=== PATIENT | female | born 1955 | race Caucasian/White ===

== ENCOUNTER 2024-06-20 06:56 | Outpatient (OUT) | payer OTHER, SELFPAY ==
--- NOTE | 2024-06-20 | PCN_ITS ---
CARDIAC STRESS TEST Requesting Physician: Garret Nicholas M.D. Procedure Date: 06/20/2024 PERFORMING PROVIDER: Garret Nicholas M.D. REASON FOR TEST: Chest pain, shortness of breath, palpitations. STRESS TEST PROTOCOL: Lexiscan myocardial perfusion imaging. Resting heart rate: 62 Max hear rate: 88 Resting blood pressure: 118/74 Maximum blood pressure: 170/74 Resting EKG: Normal sinus rhythm. ST changes: No ST changes meeting the criteria of ischemia. Arrhythmias: PVCs. CONCLUSION: 1. Resting EKG demonstrates sinus rhythm. 2. There were no ST changes meeting the criteria of ischemia post Lexiscan infusion. 3. Myocardial perfusion imaging will be interpreted and reported in a separate report. Please refer to that report for additional information. [facility]
--- NOTE | 2024-06-20 07:10 | NM_ITS ---
Patient Name: MATHEW COATES MR#: [id number] : 1955 Exam Date: 06/20/2024 Ordering Doctor: ROSSY NICHOLAS M.D. RADIOLOGY REPORT PROCEDURE: NM GELACIO PERF SPECT REST STR COMPARISON: None. INDICATIONS: DYSPNEA TECHNIQUE: Exam Description: Stress/Rest one day protocol gated SPECT Rest Imagin.4 mCi Tc-99m Cardiolite IV on 06/20/2024 Stress Imaging 30.1 mCi Tc-99m Cardiolite IV on 06/20/2024 Exercise Protocol: 0.4 mg Lexiscan given IV Heart Rate (bpm): Rest: 62 Max: 88 PMHR: 57 Blood Pressure: Rest: 118/74 Max: 118/74 Symptoms: Rest and peak stress ECG findings were normal and the exercise portion of the study was normal per attending physician Dr. Nicholas . For more details please see separate cardiac stress test report. FINDINGS: QUALITY OF STUDY: Excellent. PERFUSION DEFECT: LOCATION: Basal inferior. Mid-inferior. Apical inferior. [place]. SIZE: Medium (3-4 segments). SEVERITY: Mild. TYPE: Persistent. WALL MOTION: Normal. LV SIZE: Normal. 84 mL. TID / TCD: None; 0.8 LVEF: Normal. Calculated EF 57%. SUMMARY: Myocardial perfusion imaging study has ABNORMAL findings. CONCLUSION: 1. No acute or reversible ischemia. 2. Mildly decreased radiotracer activity within inferior wall and apex; fixed ischemia versus diaphragm attenuation artifact. 3. Normal wall motion, left ventricle size, and ejection fraction. Dictated by: Carlos Gongora M.D. on 06/22/2024 at 10:30 Approved by: Carlos Gongora M.D. on 06/22/2024 at 10:37
--- NOTE | 2024-06-20 07:30 | CA_ITS ---
Patient Name: MATHEW COATES MR#: [id number] : 1955 Exam Date: 06/20/2024 Ordering Doctor: ROSSY GARCÍA M.D. ECHOCARDIOGRAM REPORT PROCEDURE: CA ECHO DOPPLER COMPLETE INDICATIONS: Diastolic heart failure, palpitations, diabetes, hypertension COMPARISON: None. DESCRIPTION: COMPLETE ECHOCARDIOGRAM Real-time transthoracic echocardiography with 2D, M-mode, spectral and color flow Doppler performed. QUALITY: Technical quality was adequate. LEFT VENTRICLE: Normal chamber size. Normal left ventricular wall thickness. Normal systolic function. LV EF: Normal left ventricular ejection fraction, (55%). DIASTOLIC: Diastolic function is indeterminate. ATRIAL SEPTUM: Visually appears intact. Lipomatous hypertrophy of the interatrial septum is seen. LEFT ATRIUM: Mild dilatation. RIGHT ATRIUM: Normal chamber size. RIGHT VENTRICLE: Normal chamber size. Normal right ventricular systolic function. TRICUSPID VALVE: Normal mobility and thickness. No stenosis with trivial regurgitation. Doppler studies reveal mildly (35-45) elevated right sided pressures. RVSP 36 mmHg MITRAL VALVE: Normal mobility and thickness. No evidence of mitral valve stenosis. There is no mitral annular calcification. No mitral regurgitation. AORTIC VALVE: Normal trileaflet appearance. No visible sclerosis. Normal leaflet mobility. No evidence of aortic valve stenosis. No aortic regurgitation. AORTIC ROOT: Normal diameter and appearance. PULMONIC VALVE: Not well visualized. No stenosis. No regurgitation. PERICARDIUM: No evidence of pericardial effusion. IVC: Collapses with inspirations. IVC is normal in size. PLEURA: CONCLUSION: 1. Normal left ventricular size and systolic function. Estimated LVEF is 55%. 2. Normal right ventricular size and systolic function. 3. Mild left atrial dilatation. Lipomatous hypertrophy of the interatrial septum. 4. No significant valvular dysfunction. 5. Mildly elevated right-sided pressures. Adult Echocardiography Procedure Report Left Ventricle LVEDD (3.7 - 5.6 cm): 4.85 cm LVESD (2.2 - 4.0 cm): 2.98 cm LVIVS thickness (0.6 - 1.2 cm): 1.03 cm LVPW thickness (0.5 - 1.0 cm): 0.82 cm e': 0.13 m/s E - e': 5.36 LVOT Max Gradient: 3.91 mm[Hg] LVOT Area (cm2): 0.99 m/s Peak Velocity (LVOT): 0.99 m/s Mean Velocity (LVOT): 0.63 m/s LVOT Diameter 2.02 cm Left Atrium LA Volume Index (2D A2C): 36.94 ml/m2 Left Atrium Systolic Dimension: 3.68 cm Mitral Valve MV E to A Ratio: 0.78 Mitral Valve A-Wave Peak Velocity: 0.88 m/s Mitral Valve E-Wave Peak Velocity: 0.69 m/s Right Ventricle Aorta AO Root Diam: 3.00 cm Aortic Valve AoV Area (Peak Baltazar): 2.17 cm2, 2.17 cm2 AoV Area (VTI): 2.33 cm2, 2.33 cm2 Peak Velocity(Antegrade Flow): 1.47 m/s Peak Gradient(Antegrade Flow): 8.61 mm[Hg] Mean Velocity(Antegrade Flow): 0.92 m/s Mean Gradient(Antegrade Flow): 4.04 mm[Hg] Velocity Time Integral: 29.79 cm Tricuspid Valve Peak Velocity (Regurgitant Flow): 2.85 m/s Pulmonic Valve Mean Gradient: 2.57 mm[Hg] Mean Velocity: 0.75 m/s Peak Velocity: 1.07 m/s, 1.01 m/s Peak Gradient: 4.07 mm[Hg], 4.55 mm[Hg] Right Atrium Dictated by: Isiah Aldana M.D. on 06/20/2024 at 20:10 Approved by: Isiah Aldana M.D. on 06/20/2024 at 20:13
[2024-06-20] MEDS: REGADENOSON 0.4 MG/5 ML SYRINGE IV (08:55)
--- NOTE | 2024-06-20 10:07 | PC.NURSE ---
Nursing Note Cardiac Stress Test Reviewed: Medication, allergies and patient history reviewed. Stress Test: [ x] Patient tolerated stress test well. [ ] Patient unable to tolerate walking on treadmill. Switched to Lexiscan stress test. [x ] No chest pain noted per patient [ ] Chest pain that resolved prior to leaving stress lab. [x ] No dyspnea noted. [ ] Dyspnea that resolved prior to leaving stress lab. [ x] Patient left stress lab asymptomatic and hemodynamically stable. [ ] Patient taken to the Emergency Room due to non-resolving symptoms following stress test. [ ] Patient achieved target heart rate. [ ] Patient unable to achieve target heart rate. [ ] Aminophylline administered as reversal agent to Lexiscan (Regadenoson). [ ] Nitro administered. Nursing Comments:Pt had lexiscan stress test done. TOlerated well. No issues noted. Pt ambulated to cafeteria for breakfast prior to second set of images.
== END 2024-06-20 06:57 | disposition home or self-care (01) ==
PROVIDERS: PCP Nurse Practitioner Family; Visit Provider Internal Medicine Cardiovascular Disease
DX: R06.09 Other forms of dyspnea (principal); I50.32 Chronic diastolic (congestive) heart failure; R00.2 Palpitations
CPT/HCPCS: 78452; 93017; 93306; A9500; J2785

== ENCOUNTER 2024-09-03 15:24 | Outpatient (OUT) | payer MEDICARE, SELFPAY | END 2024-09-03 15:25 | disposition home or self-care (01) | LOC: RAD 15:24 | PROVIDERS: PCP Nurse Practitioner Family; Visit Provider Nurse Practitioner Family | DX: Z00.00 Encounter for general adult medical examination without abnormal findings (principal); M81.0 Age-related osteoporosis without current pathological fracture; M85.80 Other specified disorders of bone density and structure, unspecified site | CPT/HCPCS: 77080 ==

== ENCOUNTER 2024-09-19 10:18 | Outpatient (OUT) | payer MEDICARE, SELFPAY ==
--- NOTE | 2024-09-19 10:21 | US_ITS ---
The [address] [address] Patient Name: MATHEW COATES MRN: [id number] date: 1955 Sex: F Assigned Patient Location: Current Patient Location: US Accession/Order Number: [id number] Exam Date: 09/19/2024 13:48 Report Date: 09/19/2024 13:51 At the request of: NAE TONEY Procedure: US renal bladder US renal bladder 09/19/2024 11:12 AM SIGNS AND SYMPTOMS: ^Urinary Incontinence, bilateral flank pain COMPARISON: None. FINDINGS: Right kidney measures 9.7 x 5.1 x 5.4 cm . No hydronephrosis or mass. The right renal cortex measures 8 mm in thickness. Left kidney measures 10.6 x 5.6 x 5.1 cm . There is no hydronephrosis or mass. The left renal cortex measures 7 mm in thickness. The urinary bladder is morphologically normal. No free fluid is seen in the pelvis. Before voiding, the bladder measures 2.3 x 4.3 x 4.8 , which corresponds to an estimated volume of 33 mL . The bladder has a post void residual of 2 mL. US/US renal bladder IMPRESSION: No hydronephrosis or mass. Impression dictated by: Uziel Tay M.D. 09/19/2024 1:51 PM Dictation Location: [place] [address] Electronically authenticated by: [id number] Y Date: 09/19/2024 13:51
== END 2024-09-19 10:19 | disposition home or self-care (01) ==
LOC: US 10:18
PROVIDERS: PCP Nurse Practitioner Family; Visit Provider Nurse Practitioner Family
DX: R32 Unspecified urinary incontinence (principal)
CPT/HCPCS: 76770